=== PATIENT | female | born 1935 | race Caucasian/White ===

== ENCOUNTER 2017-07-01 16:18 | Emergency (ER) | payer OTHER ==
[~2017-07-01] VITALS: Ht 160 cm; Wt 63.5 kg
[~2017-07-01 16:18] MED LIST: ALBU18HF INH; ALEN70TA5 PO; ALLO100T30 PO; ASPI-496 PO; ATEN50TA41 PO; BUDE10.2 INH; CALC-112 PO; CHOL100012 PO; FURO20TA3 PO; LEVO50TA5 PO; LEVO75TA5 PO; LOVA40TA2 PO; MULT-464 PO; VITA150T PO
[2017-07-01] MEDS ORDERED: SODIUM CHLORIDE 0.9% 1,000ML IVBOLUS ONE (17:00)
[2017-07-01] MEDS ORDERED: SODIUM CHLORIDE FLUSH 10ML SYR IVF ONE (17:00)
[2017-07-01] MEDS ORDERED: LABETALOL 5MG/ML, 20ML IVPush ONE (20:00)
[2017-07-01] MEDS ORDERED: LABETALOL 5MG/ML, 20ML ONE (20:06)
[2017-07-01 20:35] VITALS: BP 174/77
== END 2017-07-01 21:17 | disposition home or self-care (01) ==
LOC: ED 18:08
DX: I10 Essential (primary) hypertension (principal); R51 Headache; J45.909 Unspecified asthma, uncomplicated; Z90.710 Acquired absence of both cervix and uterus; Z87.891 Personal history of nicotine dependence
CPT/HCPCS: 36415; 84439; 84443; 93005; 96361; 96374; 99285; J7030

== ENCOUNTER → 2017-11-22 | Outpatient (CLI) | payer OTHER | END | disposition home or self-care (01) | LOC: CFH 09:34 | PROVIDERS: ATTEND Internal Medicine Nephrology | DX: I12.9 Hypertensive chronic kidney disease with stage 1 through stage 4 chronic kidney disease, or unspecified chronic kidney disease (principal); N18.3 Chronic kidney disease, stage 3 (moderate) | CPT/HCPCS: 93975 ==

== ENCOUNTER → 2018-04-18 | Outpatient (CLI) | payer OTHER | END | disposition home or self-care (01) | LOC: CFH 09:59 | PROVIDERS: ATTEND Nurse Practitioner | DX: Z12.31 Encounter for screening mammogram for malignant neoplasm of breast (principal) | CPT/HCPCS: 77067 ==

== ENCOUNTER 2018-10-27 12:22 | Inpatient (IN) | payer MEDICARE, OTHER ==
[~2018-10-27] VITALS: Ht 165.1 cm; Wt 68.8 kg
[~2018-10-27 12:22] MED LIST changes: -ALEN70TA5 PO; +ALEN70TA6 PO
[2018-10-27] MEDS ORDERED: SODIUM CHLORIDE FLUSH 10ML SYR IVF ONE (13:00)
--- NOTE | 2018-10-27 13:11 | NUR ---
FROM LOBBY TO ROOM AT THIS TIME.
--- NOTE | 2018-10-27 13:28 | NUR ---
pt to ed for bilateral leg edema x2 weeks and r flank pain x 1 day with decreased urination. no recent diet or medication changes. md at bedside for assessemtn. connected to all monitors. htn 190s. all other vss. awaiting orders at this time.
[2018-10-27 13:29] LABS: BASOPHILS # (AUTO) 0.06 x10^3/uL (0-0.1); BASOPHILS % (AUTO) 1 % (0-1); EOSINOPHILS # (AUTO) 0.17 x10^3/uL (0-0.4); EOSINOPHILS % (AUTO) 2 % (1-7); LYMPHOCYTES # (AUTO) 1.61 x10^3/uL (1-3.4); LYMPHOCYTES % (AUTO) 20 % (22-44); MD NO; MEAN CORPUSCULAR HEMOGLOBIN 32.3 pg (27.0-34.8); MEAN CORPUSCULAR HGB CONC 33.9 g/dL (32.4-35.8); MEAN CORPUSCULAR VOLUME 95.2 fL (80-100); MEAN PLATELET VOLUME 8.3 fL (7.4-10.4); MONOCYTES # (AUTO) 0.53 x10^3/uL (0.2-0.8); MONOCYTES % (AUTO) 6 % (2-9); NEUTROPHILS # (AUTO) 5.91 x10^3/uL (1.8-6.8); NEUTROPHILS % (AUTO) 71 % (42-75); PLATELET COUNT 287 x10^3/uL (130-400); RED BLOOD COUNT 4.56 x10^6/uL (3.82-5.3); RED CELL DISTRIBUTION WIDTH 14.2 % (9.6-15.2)
[2018-10-27] MEDS ORDERED: FUROSEMIDE 40 MG/4 ML IV ONE (13:30)
[2018-10-27 13:38] LABS: ALANINE AMINOTRANSFERASE 20 U/L (12-78); ALBUMIN 2.8 g/dL (3.4-5.0); ANION GAP 9 mmol/L (5-15); CHLORIDE 101 mmol/L (98-107); CREATININE 2.01 mg/dL (0.55-1.02)
[2018-10-27 13:43] LABS: ALKALINE PHOSPHATASE 72 U/L (45-117); BILIRUBIN,TOTAL 0.7 mg/dL (0.2-1.0); TOTAL PROTEIN 6.7 g/dL (6.4-8.2); TROPONIN I < 0.015 ng/mL (0.000-0.045)
[2018-10-27] MEDS ORDERED: FUROSEMIDE 40 MG/4 ML ONE (13:47)
[2018-10-27] MEDS ORDERED: LISI-167 PO (14:37)
--- NOTE | 2018-10-27 14:40 | NUR ---
REPORT GIVEN TO ESTHER. PT READY FOR TRANSPORT.
--- NOTE | 2018-10-27 14:54 | NUR ---
HOSPITALIST AT BEDSIDE FOR ADMIT TO [facility], THEN PT TO BE TRANSPORTED TO FLOOR
[2018-10-27] MEDS ORDERED: ACETAMINOPHEN 325 MG TABLET PO PRN (15:30)
[2018-10-27] MEDS ORDERED: morphine SULFATE 10 MG/ML, 1ML IVPush PRN (15:30)
[2018-10-27] MEDS ORDERED: TEMAZEPAM 15 MG CAPSULE PO PRN (15:30)
[2018-10-27] MEDS ORDERED: ONDANSETRON 2MG/ML, 2ML IVPush PRN (15:30)
[2018-10-27] MEDS ORDERED: LEVOTHYROXINE 75 MCG TABLET PO SCH (15:30)
[2018-10-27] MEDS: LEVOTHYROXINE 50 MCG TABLET PO SCH (15:30)
[2018-10-27] MEDS: hydrALAzine 20 MG/ML, 1ML IVPush PRN (15:32)
[2018-10-27 15:35] VITALS: BP 202/150
[2018-10-27 15:46] VITALS: BP 148/71
[2018-10-27 16:24] VITALS: BP 152/78
[2018-10-27] MEDS ORDERED: FUROSEMIDE 20 MG/2 ML IV SCH (17:00)
[2018-10-27 18:40] VITALS: BP 158/80
[2018-10-27] MEDS: LOVASTATIN 40 MG TABLET PO SCH (20:34)
[2018-10-27] MEDS: HEPARIN 5,000 UNITS/ML, 1ML SQ SCH (20:34)
[2018-10-27 22:27] LABS: TROPONIN I < 0.015 ng/mL (0.000-0.045)
[2018-10-28 01:19] VITALS: BP 162/83
[2018-10-28] MEDS: HEPARIN 5,000 UNITS/ML, 1ML SQ SCH ×3 (03:45→20:13)
[2018-10-28 04:56] LABS: BASOPHILS # (AUTO) 0.02 x10^3/uL (0-0.1); BASOPHILS % (AUTO) 0 % (0-1); EOSINOPHILS # (AUTO) 0.09 x10^3/uL (0-0.4); EOSINOPHILS % (AUTO) 2 % (1-7); LYMPHOCYTES % (AUTO) 23 % (22-44); MD NO; MEAN CORPUSCULAR HEMOGLOBIN 32.5 pg (27.0-34.8); MEAN CORPUSCULAR VOLUME 95.5 fL (80-100); MEAN PLATELET VOLUME 7.9 fL (7.4-10.4); MONOCYTES # (AUTO) 0.47 x10^3/uL (0.2-0.8); MONOCYTES % (AUTO) 10 % (2-9); NEUTROPHILS # (AUTO) 3.21 x10^3/uL (1.8-6.8); NEUTROPHILS % (AUTO) 66 % (42-75); PLATELET COUNT 221 x10^3/uL (130-400); RED BLOOD COUNT 3.51 x10^6/uL (3.82-5.3); RED CELL DISTRIBUTION WIDTH 14.7 % (9.6-15.2)
[2018-10-28 05:06] LABS: CHLORIDE 103 mmol/L (98-107)
[2018-10-28 05:17] LABS: ALANINE AMINOTRANSFERASE 14 U/L (12-78); ALKALINE PHOSPHATASE 52 U/L (45-117); ANION GAP 10 mmol/L (5-15); BILIRUBIN,TOTAL 0.5 mg/dL (0.2-1.0); CALCIUM 8.1 mg/dL (8.5-10.1); CREATININE 2.19 mg/dL (0.55-1.02); TOTAL PROTEIN 4.7 g/dL (6.4-8.2); TROPONIN I < 0.015 ng/mL (0.000-0.045)
[2018-10-28 07:50] VITALS: BP 148/78
[2018-10-28] MEDS: CHOLECALCIFEROL 1,000 UNIT TABLET PO SCH (08:07)
[2018-10-28] MEDS: ALLOPURINOL 100 MG TABLET PO SCH (08:07)
[2018-10-28] MEDS: LEVOTHYROXINE 50 MCG TABLET PO SCH (08:07)
[2018-10-28] MEDS: MULTIVITAMINS/MINERALS TABLET PO SCH (08:07)
[2018-10-28] MEDS: ASPIRIN 81 MG TABLET EC PO SCH (08:07)
[2018-10-28] MEDS: POTASSIUM CHLORIDE 20 MEQ TAB.ER.PRT PO SCH (08:08)
[2018-10-28] MEDS: MULTIVITS,STRESS FORMULA 1 TABLET PO SCH (08:08)
[2018-10-28] MEDS: FUROSEMIDE 40 MG/4 ML IV SCH ×2 (08:29→17:18)
[2018-10-28] MEDS ORDERED: LOVASTATIN 40 MG TABLET PO SCH (09:00)
[2018-10-28 09:59] LABS: MICROSCOPIC INDICATED
[2018-10-28 10:10] LABS: CULTURE INDICATED? YES
[2018-10-28 14:10] VITALS: BP 145/80
[2018-10-28] MEDS ORDERED: FUROSEMIDE 40 MG/4 ML IV SCH (17:00)
[2018-10-28 20:00] VITALS: BP 165/83
[2018-10-28] MEDS: LOVASTATIN 40 MG TABLET PO SCH (20:13)
[2018-10-29 02:25] VITALS: BP 163/76
[2018-10-29] MEDS: HEPARIN 5,000 UNITS/ML, 1ML SQ SCH ×2 (04:19→11:56)
[2018-10-29 04:58] LABS: ANION GAP 7 mmol/L (5-15); CALCIUM 7.6 mg/dL (8.5-10.1); CHLORIDE 102 mmol/L (98-107)
[2018-10-29 05:00] LABS: CREATININE 2.87 mg/dL (0.55-1.02)
[2018-10-29 07:36] VITALS: BP 115/70
[2018-10-29] MEDS: FUROSEMIDE 40 MG/4 ML IV SCH (08:00)
[2018-10-29] MEDS: ALLOPURINOL 100 MG TABLET PO SCH (10:19)
[2018-10-29] MEDS: ASPIRIN 81 MG TABLET EC PO SCH (10:19)
[2018-10-29] MEDS: MULTIVITAMINS/MINERALS TABLET PO SCH (10:20)
[2018-10-29] MEDS: CHOLECALCIFEROL 1,000 UNIT TABLET PO SCH (10:20)
[2018-10-29] MEDS: POTASSIUM CHLORIDE 20 MEQ TAB.ER.PRT PO SCH (10:20)
[2018-10-29] MEDS: LEVOTHYROXINE 50 MCG TABLET PO SCH (10:25)
[2018-10-29] MEDS: MULTIVITS,STRESS FORMULA 1 TABLET PO SCH (10:25)
[2018-10-29 12:34] VITALS: BP 174/72
[2018-10-29] MEDS: hydrALAzine 20 MG/ML, 1ML IVPush PRN (13:38)
[2018-10-29] MEDS ORDERED: METO25TA91 PO (14:14)
[2018-10-29] MEDS ORDERED: POTA20PA31 PO (14:14)
[2018-10-29] MEDS ORDERED: FURO20TA3 PO (14:14)
[2018-11-02] MEDS ORDERED: ALENDRONATE 70 MG TABLET PO SCH ×2 (06:30)
== END 2018-10-29 15:09 | disposition home health service (06) | DRG 682 ==
LOC: ED 14:33 → EDIP 14:34 → SUATTDRO 14:36 → 5SO 15:10 → DCLOUNGE 10-29 14:49
PROVIDERS: ADMIT Internal Medicine; ATTEND Internal Medicine
DX: N17.9 Acute kidney failure, unspecified (principal); I50.41 Acute combined systolic (congestive) and diastolic (congestive) heart failure; I13.0 Hypertensive heart and chronic kidney disease with heart failure and stage 1 through stage 4 chronic kidney disease, or unspecified chronic kidney disease; M48.54XA Collapsed vertebra, not elsewhere classified, thoracic region, initial encounter for fracture; N18.3 Chronic kidney disease, stage 3 (moderate); E03.9 Hypothyroidism, unspecified; E78.5 Hyperlipidemia, unspecified; I27.20 Pulmonary hypertension, unspecified; I35.8 Other nonrheumatic aortic valve disorders; I73.9 Peripheral vascular disease, unspecified; J45.909 Unspecified asthma, uncomplicated; M10.9 Gout, unspecified; M81.0 Age-related osteoporosis without current pathological fracture; Z96.642 Presence of left artificial hip joint; Z90.710 Acquired absence of both cervix and uterus; Z88.8 Allergy status to other drugs, medicaments and biological substances; Z87.891 Personal history of nicotine dependence
CPT/HCPCS: 36415; 71046; 76770; 80048; 80053; 81001; 83735; 83880; 84100; 84484; 85025; 87086; 93005; 93306; 96374; 99285; G0378; J1644; J1940; J2405; J0360

== ENCOUNTER 2018-11-01 12:05 | Emergency (ER) | payer MEDICARE, OTHER ==
[~2018-11-01] VITALS: Ht 165.1 cm; Wt 66.9 kg
[~2018-11-01 12:05] MED LIST changes: +LISI-167 PO; +METO25TA91 PO; +POTA20PA31 PO
--- NOTE | 2018-11-01 12:42 | NUR ---
Pt to room from [facility], [place], ambulatory with steady gait.
--- NOTE | 2018-11-01 12:55 | NUR ---
Pt not in room on arrival. Pt then found walking down handy with steady gait. Pt helped into gown. Pt noted to have a bruise left lower extremity. Pt has bilateral pedal edema.
[2018-11-01] MEDS ORDERED: ACETAMINOPHEN 325 MG TABLET PO ONE (13:30)
[2018-11-01] MEDS ORDERED: ACETAMINOPHEN 500 MG TABLET ONE (13:39)
[2018-11-01 13:50] VITALS: BP 200/109
--- NOTE | 2018-11-01 13:50 | NUR ---
BREAK RN: PATIENT MEDICATED PER MAR, VS UPDATED IN CHART. NO ADDITIONAL NEEDS AT THIS TIME, AWAITING XRAY RESULTS. SHIRA.
== END 2018-11-01 14:27 | disposition home or self-care (01) ==
LOC: ED 13:54
DX: S80.12XA Contusion of left lower leg, initial encounter (principal); I12.9 Hypertensive chronic kidney disease with stage 1 through stage 4 chronic kidney disease, or unspecified chronic kidney disease; N18.9 Chronic kidney disease, unspecified; W22.8XXA Striking against or struck by other objects, initial encounter; Y93.89 Activity, other specified; Y92.410 Unspecified street and highway as the place of occurrence of the external cause; Y99.8 Other external cause status
CPT/HCPCS: 99283